=== PATIENT | female | born 2000 | race African-American/Black ===

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

== ENCOUNTER 2019-07-04 01:26 | Emergency (ER) | payer MEDICAID, OTHER, SELFPAY | END 2019-07-04 02:00 | disposition home or self-care (01) | LOC: ERS 01:26 | DX: J02.9 Acute pharyngitis, unspecified (principal); R06.00 Dyspnea, unspecified | CPT/HCPCS: 99283 ==

== ENCOUNTER 2019-10-07 10:54 | Outpatient (CLI) | payer BC, MEDICAID ==
--- NOTE | 2019-10-07 11:40 | ULT ---
OB ULTRASOUND: HISTORY: anatomy FINDINGS: A single live intrauterine gestation is seen with measurements corresponding to an estimated gestatio nal age of 22 weeks 5 daysand MCKENZIE at 02/05/2020. The estimated weight measures 534 g or 1 pound 3 ounces (54% by Hadlock criteria). biometry: BPD: 5.37 cm, 22 weeks 3 days HC: 20.18 cm, 22 weeks 3 days AC: 17.73 cm, 22 weeks 5 days FL: 4.06 cm, 23 weeks 1 day heart rate: 150bpm Placenta: Posterior/fundal Placenta previa: No MAREN: 11.3cm Cervical length: 4cm A three-vessel cord, cord insertion, kidneys, urinary bladder, stomach, 4 chambered heart, late ral ventricles, cerebellum, spine, lips/nose, upper and lower extremities are visualized. No definite anomalies are seen. IMPRESSION: Single live intrauterine gestation of 22 weeks 5 daysestimated gestational age and MCKENZIE at 02/05/2020
== END 2019-10-07 10:55 | disposition home or self-care (01) ==
LOC: BICULT 10:54
PROVIDERS: ATTEND Family Medicine
DX: Z34.82 Encounter for supervision of other normal pregnancy, second trimester (principal); Z3A.22 22 weeks gestation of pregnancy
CPT/HCPCS: 76805

== ENCOUNTER 2019-11-26 13:16 | Day surgery (SDC) | payer OTHER ==
[2019-11-26 13:40] VITALS: BMI 32.5
[2019-11-26 13:43] VITALS: BP 116/58; TEMP 99
[2019-11-26] MEDS ORDERED: hydrALAZINE 20 MG/ML VIAL SLOW IVP PRN (14:04)
--- NOTE | 2019-11-26 14:18 | PDOC.LDHP ---
Labor and Delivery H&P Chief complaint: contractions HPI: 19yo @ 29.6 presents from [facility] ED for ctx. 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 No breakfast and only some water this morning. At work, ctx increased to about every 8 minutes and thus EMS was called. In the ED, given 1L NS, spec exam with closed, thick cervix. Transported to [facility] for triage. Currently without ctx. Denies any LOF. Endorses good movement. States has been treated twice in past 2 weeks for UTI. Initially presented to [facility] for UTI, given Keflex and told to follow up with PCP. Saw OB PCP where she was tested for GC/C and was negative per pt. Then presented to PCP in [place] where a repeat UTI was again diagnosed and she was given Macrobid. Testing for GC/C, HIV, and sphyllis was negative per pt. She has finished abx yesterday for UTI but still endorses yellow, copious discharge. She was sexually active with a new partner about 1 week ago, states used protection. Denies any SOUTH, vision changes, CP, SOB, edema, n/v. Current gestational age (weeks): 29 (29.6) Due date: 02/05/20 Grav: 3 Para: 2 (2001) OB History Details: Previous pregnancies ended in at term without complications. No history of gDM or gHTN. Does state has had Chlamydia in this and prior pregnancies. Current complications: other (chlamydia) Current medications: pre-beata vitamins, other (zoloft) Allergies/Adverse Reactions: Allergies Allergy/AdvReac Type Severity Reaction Status Date / Time etonogestrel [From Nexplanon] Allergy Verified 11/26/19 13:40 Social history: none - Physical Exam Vital signs reviewed and normal: yes General: NAD, resting, breathing through contractions Heart: RRR Lungs: CTAB Abdomen: NTTP Extremeties: no edema FHT: category 1 [place] contractions every: none - Assessment 19yo @ 29.6 presents from [facility] ED for ctx. Now without contractions but concern for UTI vs STD. - Plan Plan: other -: 19yo @ 29.6 presents from [facility] ED for ctx # labor r/o - no ctx on monitor, reassuring FHT - No ctx per patient - no evidence of labor #UTI/STD - Treated with macrobid and finished abx yesterday per patient - Still with vaginal discharge and irritation - UA with LE but no bacteria - VP3 + Trich and BV PCP: [facility] Dispo: Discharge home with rx for Flagyl for tx of trich and BV. Discussed need for partner to be treated as well and to abstain from intercourse until he is treated. Recommended f/u with Dr. Guerrero next week and discussed importance of finishing abx. Labor precautions given. Patient voiced understanding and agreement of discharge plan. All questions answered. Addendum - Attending - Attending Attestation Date/Time: 11/26/192032 I personally evaluated the patient and discussed the management with Dr. Louis. I agree with the History, Examination, Assessment and Plan documented above.
[2019-11-26 14:22] LABS: Bilirubin Negative (Negative); Blood, Urine 3+ (Negative); Clarity Clear (Clear); Glucose, Urine (Dipstick) Normal (Negative); Ketone, Urine Negative (Negative); Leukocyte 500 Leu/uL (Negative); Nitrite Negative (Negative); Protein, Urine (Dipstick) 20 mg/dL (Neg-Trace); RBC/HPF Greater than 50 HPF (0-3); Specific Gravity, Urine 1.012 (1.002-1.036); Squamous Epithelial 0-3 HPF (0-3); Urobilinogen Normal mg/dL (Less than 2); pH, Urine 6.5 (5.0-9.0)
[2019-11-26 14:31] LABS: Bacteria/HPF None Seen HPF (None Seen)
== END 2019-11-26 15:55 | disposition home or self-care (01) ==
LOC: L&D/OP 13:16
PROVIDERS: ATTEND Obstetrics & Gynecology
DX: O47.1 False labor at or after 37 completed weeks of gestation (principal); O98.313 Other infections with a predominantly sexual mode of transmission complicating pregnancy, third trimester; A59.01 Trichomonal vulvovaginitis; O23.593 Infection of other part of genital tract in pregnancy, third trimester; B96.89 Other specified bacterial agents as the cause of diseases classified elsewhere; Z3A.29 29 weeks gestation of pregnancy; Z88.8 Allergy status to other drugs, medicaments and biological substances
CPT/HCPCS: 51701; 81001; 87480; 87510; 87660; 99284

== ENCOUNTER 2020-01-30 07:48 | Inpatient (IN) | payer OTHER ==
[2020-01-30 08:05] VITALS: BMI 33.6
[2020-01-30] MEDS ORDERED: FLU VACC QS2020-21(6MOS UP)/PF 60 MCG/0.5 ML SYRINGE IM ONE (08:30)
[2020-01-30] MEDS ORDERED: hydrALAZINE 20 MG/ML VIAL SLOW IVP PRN ×2 (08:32→15:59)
[2020-01-30] MEDS ORDERED: NS / Oxytocin 40 units/1000ml 1,000 ML IV PRN (08:32)
[2020-01-30] MEDS ORDERED: Lidocaine 1% (PF) 30 ML VIAL SC PRN (08:32)
[2020-01-30] MEDS ORDERED: Butorphanol Tartrate 1 MG/ML VIAL SLOW IVP PRN (08:32)
[2020-01-30] MEDS ORDERED: Carboprost 250 MCG/ML AMP IM PRN (08:32)
[2020-01-30] MEDS ORDERED: Ondansetron PF 4 MG/2 ML Vial IVP PRN ×3 (08:32→15:59)
[2020-01-30] MEDS ORDERED: Diphenoxylate HCl/Atropine Tablet PO PRN (08:32)
[2020-01-30] MEDS ORDERED: Promethazine HCl 25 MG/ML VIAL IM PRN ×3 (08:32→15:59)
[2020-01-30] MEDS ORDERED: Misoprostol 200 MCG TAB PR PRN (08:32)
[2020-01-30] MEDS ORDERED: HYDROcodone/Acetaminophen 5/325 mg Tablet PO PRN ×3 (08:32→15:59)
[2020-01-30] MEDS ORDERED: Ibuprofen 800 MG TAB PO PRN (08:32)
[2020-01-30] MEDS ORDERED: Methylergonovine 0.2 MG/ML VIAL IM PRN (08:32)
[2020-01-30] MEDS ORDERED: Lactated Ringer's 1,000 ML IV SCH (08:45)
[2020-01-30] MEDS ORDERED: Penicillin G Potassium 5 MILL.UNITS in Sodium Chloride 0.9% 100 ML IVPB SCH (08:45)
[2020-01-30] MEDS ORDERED: NS w/ Oxytocin 10 units 500 ML IV SCH ×2 (08:45)
[2020-01-30] MEDS ORDERED: Lidocaine 1% (PF) 30 ML VIAL ONE (10:28)
[2020-01-30] MEDS ORDERED: NS / Oxytocin 40 units/1000ml 0 ML ONE (10:28)
[2020-01-30 11:25] LABS: Hemoglobin 10.1 g/dL (12.0-16.0); Mean Corpuscular HGB CONC 33.3 g/dL (32.0-36.0); Mean Corpuscular Hemoglobin 30.5 pg (25.0-35.0); Mean Corpuscular Volume 91.5 fL (78.0-98.0); Platelet Count 187 thou/uL (130-400); RBC Distribution Width 12.7 % (11.5-14.5); Red Blood Cell (RBC) Count 3.33 mill/uL (4.00-5.20); White Blood Cell (WBC) Count 9.9 thou/uL (4.8-10.8)
[2020-01-30 12:09] LABS: HBSAg Index 0.13 S/CO (0-0.99); Hep B Surf Ag Non-Reactive S/CO (NonReactive); Syphilis Antibody Nonreactive (Nonreactive); Syphilis Antibody Index 0.06 S/CO (<1.00 Non-Reactive)
[2020-01-30] MEDS ORDERED: Fentanyl 4 mcg/Bup 0.1% Cadd 100 ML ONE (12:42)
[2020-01-30] MEDS ORDERED: Penicillin G 2.5 MILL.units 2.5 MILL.UNITS in Premix Bag 1 BAG IVPB SCH (13:00)
[2020-01-30] MEDS ORDERED: Bupivacaine 0.25% HCL 30 ML VIAL ONE (14:11)
[2020-01-30] MEDS ORDERED: diphenhydrAMINE 50 MG/ML VIAL IVP PRN (14:22)
[2020-01-30] MEDS ORDERED: Lactated Ringer's 500 ML IV PRN (14:22)
[2020-01-30] MEDS ORDERED: Acetaminophen 325 MG TAB PO PRN (14:22)
[2020-01-30] MEDS ORDERED: Naloxone HCl 0.4 mg/ml Vial IVP PRN ×2 (14:22)
[2020-01-30] MEDS ORDERED: EPHEDRINE 25 MG/5 ML SYRINGE SLOW IVP PRN (14:22)
[2020-01-30] MEDS ORDERED: Communication Order-Pharmacy FS SCH (14:30)
[2020-01-30] MEDS ORDERED: Fentanyl 4 mcg/Bupivacaine 0.1% Cassette 100 ML EPIDURAL SCH (14:30)
[2020-01-30] MEDS ORDERED: Bisacodyl 10 MG SUPP PR PRN (15:59)
[2020-01-30] MEDS ORDERED: Benzocaine-Menthol 82.5 ML CAN TOP PRN (15:59)
[2020-01-30] MEDS ORDERED: Lanolin Ointment 7 GM TUBE TOP PRN (15:59)
[2020-01-30] MEDS ORDERED: Milk Of Magnesia 30 ML UDCUP PO PRN (15:59)
[2020-01-30] MEDS ORDERED: NS / Oxytocin 40 units/1000ml 1,000 ML IV SCH (15:59)
[2020-01-30] MEDS ORDERED: diphenhydrAMINE 25 MG CAP PO PRN (15:59)
[2020-01-30] MEDS: Ferrous Sulfate 325 MG TAB PO SCH (18:02)
[2020-01-30] MEDS: Ibuprofen 800 MG TAB PO SCH (21:25)
[2020-01-30] MEDS: Docusate Calcium (SURFAK) 240 MG CAP PO SCH (21:25)
[2020-01-31] MEDS: Ibuprofen 800 MG TAB PO SCH ×2 (05:15→13:12)
[2020-01-31] MEDS: Docusate Calcium (SURFAK) 240 MG CAP PO SCH (08:48)
[2020-01-31] MEDS: Ferrous Sulfate 325 MG TAB PO SCH ×2 (08:48→17:17)
[2020-01-31] MEDS ORDERED: Prenatal Vitamin 1 TAB PO SCH (09:00)
[2020-01-31] MEDS ORDERED: Adacel (T-DAP) 0.5 ML SYRINGE IM ONE (09:00)
[2020-01-31 12:11] VITALS: BP 103/52; TEMP 98.4
[2020-01-31 15:38] LABS: SARS-CoV-2 MS2 Positive; SARS-CoV-2 N Gene Negative; SARS-CoV-2 S Gene Negative; SARS-CoV-2 by NAA Not Detected (NotDetected); SARS-CoV-2 orf1ab Negative
== END 2020-01-31 22:15 | disposition home or self-care (01) | DRG 807 ==
LOC: L&D/OP 07:48 → L&D 08:32 → 3SW 17:51
PROVIDERS: ADMIT Family Medicine; ATTEND Family Medicine
PROC: 10E0XZZ Delivery of Products of Conception, External Approach (ICD-10-PCS; principal; 2020-01-30)
PROC: 10907ZC Drainage of Amniotic Fluid, Therapeutic from Products of Conception, Via Natural or Artificial Opening (ICD-10-PCS; 2020-01-30)
PROC: 0HQ9XZZ Repair Perineum Skin, External Approach (ICD-10-PCS; 2020-01-30)
DX: O99.344 Other mental disorders complicating childbirth (principal); Z37.0 Single live birth; F32.9 Major depressive disorder, single episode, unspecified; Z3A.39 39 weeks gestation of pregnancy; O99.824 Streptococcus B carrier state complicating childbirth; O70.0 First degree perineal laceration during delivery; Z20.828 Contact with and (suspected) exposure to other viral communicable diseases
CPT/HCPCS: 36415; 85027; 86780; 86850; 86900; 86901; 87340; 87635; 99285; J2540; J2590; J3490; S0020; U0003

== ENCOUNTER 2020-12-12 03:29 | Emergency (ER) | payer OTHER | END 2020-12-12 04:21 | disposition home or self-care (01) | LOC: ERS 03:29 | DX: R06.00 Dyspnea, unspecified (principal); G43.909 Migraine, unspecified, not intractable, without status migrainosus; F32.9 Major depressive disorder, single episode, unspecified; F41.9 Anxiety disorder, unspecified; Z79.899 Other long term (current) drug therapy | CPT/HCPCS: 71045 ==

== ENCOUNTER 2021-11-28 14:16 | Outpatient (CLI) | payer OTHER | END 2021-11-28 14:17 | disposition home or self-care (01) | LOC: BICULT 14:16 | PROVIDERS: ATTEND Family Medicine | DX: Z34.82 Encounter for supervision of other normal pregnancy, second trimester (principal); Z3A.24 24 weeks gestation of pregnancy | CPT/HCPCS: 76805 ==

== ENCOUNTER 2022-07-31 12:38 | Emergency (ER) | payer OTHER ==
[2022-07-31] MEDS ORDERED: LORazepam 2 MG/ML SYR.(CARPUJECT) ONE (14:25)
[2022-07-31] MEDS ORDERED: Lorazepam 1 MG TAB ONE (14:38)
[2022-07-31 15:06] LABS: #Basophils 0.1 thou/uL (0.0-0.2); #Eosinphils 0.1 thou/uL (0.0-0.7); #Monocytes 0.6 thou/uL (0.11-0.59); #Neutrophils 4.1 thou/uL (1.40-6.50); %Basophils 0.7 % (0.0-1.0); %Eosinophils 1.4 % (0.0-10.0); %Monocytes 8.5 % (0.0-10.0); %Neutrophils 57.3 % (42.0-75.0); Hemoglobin 11.6 g/dL (12.0-16.0); Mean Corpuscular HGB CONC 30.9 g/dL (32.0-36.0); Mean Corpuscular Hemoglobin 27.6 pg (27.0-31.0); Mean Corpuscular Volume 89.5 fl (78.0-98.0); Mean Platelet Volume 11.7 fL (7.4-10.4); Platelet Count 237 10x3/uL (130-400); RBC Distribution Width 13.8 % (11.5-14.5); White Blood Cell (WBC) Count 7.1 10x3/uL (4.8-10.8)
[2022-07-31 15:29] LABS: ALT (SGPT) 27 U/L (8-55); AST (SGOT) 19 U/L (5-34); Albumin 4.1 g/dL (3.5-5.0); Alkaline Phosphatase 43 U/L (40-110); Anion Gap 12 mmol/L (10-20); BUN (Urea Nitrogen) 13 mg/dL (7.0-18.7); Bilirubin, Total 0.2 mg/dL (0.2-1.2); Calc. Creatinine Clearance 0 mL/min (70-130); Calcium 8.6 mg/dL (7.8-10.44); Carbon Dioxide 21 mmol/L (22-29); Chloride 109 mmol/L (98-107); Estimated GFR 99; Globulin 3.3 g/dL (2.4-3.5); Glucose 80 mg/dL (70-105); Magnesium 2.1 mg/dL (1.6-2.6); Potassium 4.2 mmol/L (3.5-5.1); Protein, Total 7.4 g/dL (6.0-8.3); Sodium 138 mmol/L (136-145)
[2022-07-31 15:45] LABS: BHCG - Serum Negative (NEGATIVE); Pregs Control Background? CLEAR/WHITE (CLR/WHITE); Pregs Control Bar Appear? YES (CONTROL BAR)
[2022-07-31 17:11] LABS: Troponin I Less than 0.010 ng/mL (< 0.028)
== END 2022-07-31 16:14 | disposition left against medical advice (07) ==
LOC: ERS 12:38
DX: R07.9 Chest pain, unspecified (principal); R79.89 Other specified abnormal findings of blood chemistry
CPT/HCPCS: 36415; 71045; 80053; 83735; 84443; 84484; 84703; 85025; 85379; 93005; J2060